=== PATIENT | female | born 1970 | race Caucasian/White ===

== ENCOUNTER 2022-02-16 08:25 | Day surgery (SDC) | payer BC ==
[2022-01-25 11:56] VITALS: BMI 21.2
[2022-02-16 08:51] VITALS: RESP 16; TEMP 96.8
[2022-02-16] MEDS: LACTATED RINGERS 1,000 ML IV SCH ×2 (09:00→09:32)
[2022-02-16] MEDS ORDERED: PROPOFOL 10 MG/ML 20 ML VIAL IV ONE (09:33)
--- NOTE | 2022-02-16 09:51 | P.PCN ---
Date of Procedure: 02/16/22 Procedure(s) Performed: BRIEF HISTORY: Patient is a 51-year-old pleasant white female scheduled for an elective colonoscopy as a part of screening for colorectal neoplasia. PROCEDURE PERFORMED: Colonoscopy. PREOPERATIVE DIAGNOSIS: Screening for colon cancer. IV sedation per Anesthesia. PROCEDURE: After informed consent was obtained, the patient, was brought into the endoscopy unit. IV sedation was administered by Anesthesia under continuous monitoring. Digital rectal examination was normal. Initially the Olympus CF-160 flexible video colonoscope was then inserted in the rectum, gradually advanced into the cecum without any difficulty. Careful examination was performed as the scope was gradually being withdrawn. Ileocecal valve and the appendiceal orifice were visualized and appeared normal. Prep was fair. There was some sticky still noted in the right colon. Irrigation was performed. Mucosa of the cecum, ascending colon, transverse colon, descending colon, sigmoid colon, and rectum appeared normal. Retroflexion was performed in the rectum and no lesions were seen. The patient tolerated the procedure well. IMPRESSION: Normal-appearing colon from rectum to cecum with no evidence of colorectal neoplasia . RECOMMENDATIONS: Findings of this examination were discussed with the patient as well as a family. She was advised to have a repeat screening colonoscopy in 10 years.
[2022-02-16 10:19] VITALS: BP 132/81; PULSE 56
== END 2022-02-16 10:47 | disposition home or self-care (01) ==
LOC: ORWHC2ENDO 08:25
PROVIDERS: ATTEND Internal Medicine Gastroenterology
DX: Z12.11 Encounter for screening for malignant neoplasm of colon (principal); I10 Essential (primary) hypertension; G43.909 Migraine, unspecified, not intractable, without status migrainosus; I47.1 Supraventricular tachycardia; Z88.5 Allergy status to narcotic agent; Z91.013 Allergy to seafood; Z88.1 Allergy status to other antibiotic agents; Z79.899 Other long term (current) drug therapy; Z80.42 Family history of malignant neoplasm of prostate
CPT/HCPCS: 45378; J2704

== ENCOUNTER 2024-12-20 14:38 | Observation (INO) | payer BC ==
[2024-12-20 15:48] LABS: Basophils # (A) 0.06 10*3/uL (0.00-0.10); Eosinophils # (A) 0.13 10*3/uL (0.04-0.35); Eosinophils % (A) 2.1 %; HCT 37.6 % (37.2-46.3); Lymphocytes # (A) 1.52 10*3/uL (0.90-5.00); Lymphocytes % (A) 24.1 %; MCH 33.5 pg (27.0-32.0); MCHC 34.6 g/dL (32.0-37.0); MCV 96.9 fL (80.0-97.0); Mean Platelet Volume 9.9 fL (9.5-12.2); Monocytes # (A) 0.57 10*3/uL (0.20-1.00); Neutrophils # (A) 4.01 10*3/uL (1.80-7.70); Neutrophils % (A) 63.6 %; Platelet Count 241 10*3/uL (140-440); RBC 3.88 10*6/uL (4.10-5.20); RDW 12.3 % (11.5-14.5)
[2024-12-20] MEDS: ASPIRIN 81 MG PO STA (15:56)
[2024-12-20 15:59] LABS: African American GFR (CKD) >90 (>60 ml/min/1.73 sqM); Anion Gap 11 mmol/L; Blood Urea Nitrogen 10 mg/dL (7-17); Calcium 10.2 mg/dL (8.4-10.2); Carbon Dioxide 25 mmol/L (22-30); Chloride 101 mmol/L (98-107); Glucose 90 mg/dL (74-99); Magnesium 2.3 mg/dL (1.6-2.3); Non-African American GFR(CKD) >90 (>60 ml/min/1.73 sqM); Potassium 4.3 mmol/L (3.5-5.1); Sodium 137 mmol/L (137-145); Total Protein 7.4 g/dL (6.3-8.2)
[2024-12-20 16:00] LABS: ALT 25 U/L (4-34); AST 39 U/L (14-36); Albumin 4.7 g/dL (3.5-5.0); Alkaline Phosphatase 56 U/L (38-126); Total Bilirubin 0.5 mg/dL (0.2-1.3)
--- NOTE | 2024-12-20 16:07 | ED ---
General Adult HPI - General Chief complaint: Dizziness Stated complaint: light headed, chest pain Time Seen by Provider: 12/20/24 14:53 Source: patient, RN notes reviewed Mode of arrival: ambulatory Limitations: no limitations - History of Present Illness Initial comments: 54-year-old female presents to the emergency department for evaluation of lightheadedness and chest pressure. Patient states that this started around 11 AM today. She does note at this time that it has improved. She notes having an episode of lightheadedness and chest pain yesterday as well. Patient endorses some mild shortness of breath associated with these episodes. She does report history of SVT and has had an ablation for this in the past. Denies any recent illness, fever, chills, headache, palpitations. - Related Data Home Medications Medication Instructions Recorded Confirmed Multivit with Calcium,Iron,Min 1 tab PO DAILY 01/25/22 12/20/24 [Women's Multivitamin] Propranolol [Inderal] 20 mg PO DAILY 01/25/22 12/20/24 valACYclovir HCL [Valtrex] 500 mg PO DAILY 01/25/22 12/20/24 Ascorbic Acid [Vitamin C] 1,000 mg PO DAILY 12/20/24 12/20/24 Biotin 2,500 mcg PO DAILY 12/20/24 12/20/24 Bonafide Womens Supplement 1 tab PO DAILY 12/20/24 12/20/24 Calcium Carbonate [Calcium] 600 mg PO BID 12/20/24 12/20/24 Iron 6mg 1 tab PO Q48H 12/20/24 12/20/24 Magnesium Oxide [Mag-Ox] 400 mg PO DAILY 12/20/24 12/20/24 Mecobalamin [Methyl B-12] 1,000 mcg PO DAILY 12/20/24 12/20/24 Naproxen [Naprosyn] 500 mg PO DAILY PRN 12/20/24 12/20/24 SUMAtriptan succinate [Imitrex] 100 mg PO DAILY PRN 12/20/24 12/20/24 Ubidecarenone [Coenzyme Q10] 200 mg PO DAILY 12/20/24 12/20/24 Allergies Allergy/AdvReac Type Severity Reaction Status Date / Time cephalexin [From Keflex] Allergy Rash/Hives Verified 12/20/24 17:56 codeine Allergy Anaphylaxis Verified 12/20/24 17:56 shellfish derived Allergy Rash/Hives Verified 12/20/24 17:56 Review of Systems ROS Statement: Those systems with pertinent positive or pertinent negative responses have been documented in the HPI. ROS Other: All systems not noted in ROS Statement are negative. Past Medical History Past Medical History: Hypertension, Supraventricular Tachycardia (SVT) Additional Past Medical History / Comment(s): migraines,osteoporosis,states "post menopausal prior to uterine ablation" History of Any Multi-Drug Resistant Organisms: None Reported Past Surgical History: Cardiac Ablation, Orthopedic Surgery, Uterine Ablation Additional Past Surgical History / Comment(s): arthroscopy lt knee,laparoscopy ovaries and uterus cysts removal Past Anesthesia/Blood Transfusion Reactions: No Reported Reaction Smoking Status: Never smoker - Past Family History Mother Family Medical History: No Reported History Father Family Medical History: Cancer Additional Family Medical History / Comment(s): prostate CA General Exam Limitations: no limitations General appearance: alert, in no apparent distress Head exam: Present: atraumatic, normocephalic, normal inspection Eye exam: Present: normal appearance, PERRL, EOMI. Absent: scleral icterus, conjunctival injection, periorbital swelling ENT exam: Present: normal exam, mucous membranes moist Neck exam: Present: normal inspection. Absent: tenderness, meningismus, lymphadenopathy Respiratory exam: Present: normal lung sounds bilaterally. Absent: respiratory distress, wheezes, rales, rhonchi, stridor Cardiovascular Exam: Present: regular rate, normal rhythm, normal heart sounds. Absent: systolic murmur, diastolic murmur, rubs, gallop, clicks GI/Abdominal exam: Present: soft. Absent: distended, tenderness, guarding, rebound, rigid Extremities exam: Present: normal inspection, full ROM, normal capillary refill. Absent: tenderness, pedal edema, joint swelling, calf tenderness Back exam: Present: normal inspection Neurological exam: Present: alert, oriented X3 Psychiatric exam: Present: normal affect, normal mood Skin exam: Present: warm, dry, intact, normal color. Absent: rash Course Vital Signs 12/20/24 12/20/24 12/20/24 14:40 15:19 17:41 Pulse Rate 72 66 67 Respiratory 18 14 16 Rate Blood Pressure 182/106 167/85 149/89 O2 Sat by Pulse 98 97 99 Oximetry Medical Decision Making - Medical Decision Making Was pt. sent in by a medical professional or institution ([facility], [employer], urgent care, hospital, or usp...) When possible be specific @ -No Did you speak to anyone other than the patient for history (EMS, parent, family, police, friend...)? What history was obtained from this source @ -No Did you review nursing and triage notes (agree or disagree)? Why? @ -I reviewed and agree with nursing and triage notes Were old charts reviewed (outside hosp., previous admission, EMS record, old EKG, old radiological studies, urgent care reports/EKG's, usp records)? Report findings @ -No old charts were reviewed Differential Diagnosis (chest pain, altered mental status, abdominal pain women, abdominal pain men, vaginal bleeding, weakness, fever, dyspnea, syncope, headache, dizziness, GI bleed, back pain, seizure, CVA, palpatations, mental health, musculoskeletal)? @ -Differential Chest Pain: Stable Angina, Unstable Angina, STEMI, NSTEMI Aortic Dissection, Pneumothorax, Musculoskeletal, Esophageal Spasm GERD, Cholecystitis, Pancreatitis, Zoster, this is not meant to be an all-inclusive list. EKG interpreted by me (3pts min.). @ -[id number] shows sinus rhythm rate 67, VT 154, QRS 86, QTQTc 376/392 X-rays interpreted by me (1pt min.). @ -Chest x-ray reveals no acute process CT interpreted by me (1pt min.). @ -None done U/S interpreted by me (1pt. min.). @ -None done What testing was considered but not performed or refused? (CT, X-rays, U/S, labs)? Why? @ -None What meds were considered but not given or refused? Why? @ -None Did you discuss the management of the patient with other professionals (professionals i.e. [facility], [employer], lab, RT, psych nurse, social welfare research worker, meal attendant, teacher, founder and chief technical officer, continuous pillowcase cutter)? Give summary @ -Management discussed with [facility] who was accepting of the admission Was smoking cessation discussed for >3mins.? @ -No Was critical care preformed (if so, how long)? @ -No Were there social determinants of health that impacted care today? How? (Homelessness, low income, unemployed, alcoholism, drug addiction, transportation, low edu. Level, literacy, decrease access to med. care, skilled nursing, rehab)? @ -No Was there de-escalation of care discussed even if they declined (Discuss DNR or withdrawal of care, Hospice)? DNR status @ -No What co-morbidities impacted this encounter? (DM, HTN, Smoking, COPD, CAD, Ca ncer, CVA, ARF, Chemo, Hep., AIDS, mental health diagnosis, sleep apnea, morbid obesity)? @ -None Was patient admitted / discharged? Hospital course, mention meds given and route, prescriptions, significant lab abnormalities, going to OR and other pertinent info. @ -Admitted. Patient presented emergency department for evaluation of chest pain. Laboratory studies obtained revealing no significant leukocytosis, hemoglobin stable; negative D-dimer, negative troponin. CMP is nonactionable. Chest x-ray reveals no acute process. Patient will be admitted for observation for chest pain and cardiology consultation. She is understanding agreeable with plan. Case discussed with Dr. Nicholas who is accepting of the admission. Case discussed with Dr. Frost Undiagnosed new problem with uncertain prognosis? @ -No Drug Therapy requiring intensive monitoring for toxicity (Heparin, Nitro, Ins ulin, Cardizem)? @ -No Were any procedures done? @ -No Diagnosis/symptom? @ -Chest pain Acute, or Chronic, or Acute on Chronic? @ -Acute Uncomplicated (without systemic symptoms) or Complicated (systemic symptoms)? @ -Default complicated Side effects of treatment? @ -No Exacerbation, Progression, or Severe Exacerbation? @ -No Poses a threat to life or bodily function? How? (Chest pain, [place], [place], pneumonia, PE, COPD, DKA, ARF, appy, cholecystitis, CVA, Diverticulitis, Homicidal, Suicidal, threat to staff... and all critical care pts) @ -No - Lab Data Result diagrams: 12/21/24 06:00 12/21/24 06:00 Lab Results 12/20/24 12/20/24 12/20/24 Range/Units 15:38 15:38 15:38 WBC 6.30 (4.50-10.00) 10*3/uL RBC 3.88 L (4.10-5.20) 10*6/uL Hgb 13.0 (12.0-15.0) g/dL Hct 37.6 (37.2-46.3) % MCV 96.9 (80.0-97.0) fL MCH 33.5 H (27.0-32.0) pg MCHC 34.6 (32.0-37.0) g/dL Plt Count 241 (140-440) 10*3/uL MPV 9.9 (9.5-12.2) fL Immature Gran % (Auto) 0.2 % Neutrophils % 63.6 % Lymphocytes % 24.1 % Monocytes % 9.0 % Eosinophils % 2.1 % Basophils % 1.0 % Immature Gran # 0.01 (0.00-0.04) 10*3/uL Neutrophils # 4.01 (1.80-7.70) 10*3/uL Lymphocytes # 1.52 (0.90-5.00) 10*3/uL Monocytes # 0.57 (0.20-1.00) 10*3/uL Eosinophils # 0.13 (0.04-0.35) 10*3/uL Basophils # 0.06 (0.00-0.10) 10*3/uL PT 10.3 (10.0-12.5) sec INR 0.9 (<1.2) APTT 23.3 (22.0-30.0) sec D-Dimer <0.17 (<0.60) mg/L FEU Sodium 137 (137-145) mmol/L Potassium 4.3 (3.5-5.1) mmol/L Chloride 101 (98-107) mmol/L Carbon Dioxide 25 (22-30) mmol/L Anion Gap 11 mmol/L BUN 10 (7-17) mg/dL Creatinine 0.51 L (0.52-1.04) mg/dL Est GFR (CKD-EPI)AfAm >90 (>60 ml/min/1.73 sqM) Est GFR (CKD-EPI)NonAf >90 (>60 ml/min/1.73 sqM) Glucose 90 (74-99) mg/dL Calcium 10.2 (8.4-10.2) mg/dL Magnesium 2.3 (1.6-2.3) mg/dL Total Bilirubin 0.5 (0.2-1.3) mg/dL AST 39 H (14-36) U/L ALT 25 (4-34) U/L Alkaline Phosphatase 56 (38-126) U/L Troponin I (0.000-0.034) ng/mL Total Protein 7.4 (6.3-8.2) g/dL Albumin 4.7 (3.5-5.0) g/dL 12/20/24 Range/Units 15:38 WBC (4.50-10.00) 10*3/uL RBC (4.10-5.20) 10*6/uL Hgb (12.0-15.0) g/dL Hct (37.2-46.3) % MCV (80.0-97.0) fL MCH (27.0-32.0) pg MCHC (32.0-37.0) g/dL Plt Count (140-440) 10*3/uL MPV (9.5-12.2) fL Immature Gran % (Auto) % Neutrophils % % Lymphocytes % % Monocytes % % Eosinophils % % Basophils % % Immature Gran # (0.00-0.04) 10*3/uL Neutrophils # (1.80-7.70) 10*3/uL Lymphocytes # (0.90-5.00) 10*3/uL Monocytes # (0.20-1.00) 10*3/uL Eosinophils # (0.04-0.35) 10*3/uL Basophils # (0.00-0.10) 10*3/uL PT (10.0-12.5) sec INR (<1.2) APTT (22.0-30.0) sec D-Dimer (<0.60) mg/L FEU Sodium (137-145) mmol/L Potassium (3.5-5.1) mmol/L Chloride (98-107) mmol/L Carbon Dioxide (22-30) mmol/L Anion Gap mmol/L BUN (7-17) mg/dL Creatinine (0.52-1.04) mg/dL Est GFR (CKD-EPI)AfAm (>60 ml/min/1.73 sqM) Est GFR (CKD-EPI)NonAf (>60 ml/min/1.73 sqM) Glucose (74-99) mg/dL Calcium (8.4-10.2) mg/dL Magnesium (1.6-2.3) mg/dL Total Bilirubin (0.2-1.3) mg/dL AST (14-36) U/L ALT (4-34) U/L Alkaline Phosphatase (38-126) U/L Troponin I <0.012 (0.000-0.034) ng/mL Total Protein (6.3-8.2) g/dL Albumin (3.5-5.0) g/dL Disposition Clinical Impression: Chest pain, Lightheadedness Disposition: ADMITTED IP TO THIS [facility] Condition: Stable Is patient prescribed a controlled substance at d/c from ED?: No
[2024-12-20 16:08] LABS: INR 0.9 (<1.2); Partial Thromboplastin Time 23.3 sec (22.0-30.0); Prothrombin Time 10.3 sec (10.0-12.5)
[2024-12-20] MEDS: SODIUM CHLORIDE 0.9% 1,000 ML IV ONE (16:23)
--- NOTE | 2024-12-20 16:25 | XR ---
EXAMINATION TYPE: XR chest 2V DATE OF EXAM: 12/20/2024 3:45 PM CLINICAL INDICATION:Female, 54 years old with history of pain; [facility] COMPARISON: None TECHNIQUE: XR chest 2V Frontal view of the chest. FINDINGS: Lungs/Pleura: There is no evidence of pleural effusion, focal consolidation, or pneumothorax. Pulmonary vascularity: Unremarkable. Heart/mediastinum: Cardiomediastinal silhouette is unremarkable. Musculoskeletal: No acute osseous pathology. IMPRESSION: No acute cardiopulmonary disease/process. [facility], , 12/20/2024 4:23 PM
[2024-12-20] MEDS ORDERED: NALOXONE 0.4 MG/ML 1 ML VIAL IV PRN (17:32)
[2024-12-20] MEDS ORDERED: ONDANSETRON 4 MG/2 ML VIAL IVP PRN (17:32)
[2024-12-20] MEDS ORDERED: ACETAMINOPHEN TAB 325 MG TAB PO PRN (17:32)
[2024-12-20] MEDS ORDERED: MORPHINE SULFATE 4 MG/ML SYRINGE IV PRN (17:32)
[2024-12-20] MEDS ORDERED: SUMAtriptan succinate 50 MG TAB PO PRN (20:27)
[2024-12-20] MEDS: MELATONIN 5 MG TABLET PO PRN (22:10)
[2024-12-20] MEDS: SODIUM CHLORIDE 0.9% 1,000 ML IV SCH (22:12)
--- NOTE | 2024-12-20 23:38 | P.HPIM ---
History of Present Illness H&P Date: 12/20/24 54 year old female with hypertension , SVT s/p ablation patient coming in due to couple episodes of left sided chest pain over the past 5 days usually associated with activity . and over the past 2 days , she was experiencing episodes of dizziness and chest tightness without palpitations profuse sweating nausea or vomiting. she never had a heart attack, she had a negative stress test years ago and recent negative Calcium CT score. she saw her compliance representative dealer in July of this year and was given a clean bill of health patient went into menopause around age 41 that is 13 years ago , and now suffers from severe osteoporosis , she was never placed on hormone replacement therapy . she recently traveled from [place] to [place] by car, denies any history of blood clots. she denies smoking or illicit drugs she currently denies any ongoing chest pain , but she was planning a trip in 2 d ays and was growing worried about these frequent episodes . she denies any fever, cough, runny nose, or recent upper respiratory viral illness. review of systems Pertinent positives as noted in HPI. All other systems were reviewed and are negative on exam Constitutional: No acute distress, conversant, pleasant Eyes: Anicteric sclerae, moist conjunctiva, Pupils equal round reactive to light ENMT: NC/AT Oropharynx clear, no erythema, or exudates Neck: Supple, no masses, or JVD No carotid bruits No thyromegaly Lungs: Clear to auscultation Clear to percussion Normal respiratory effort, no accessory muscle use Cardiovascular: Heart regular in rate and rhythm, No murmurs, gallops, or rubs No peripheral edema Abdominal: Soft Nontender, no guarding, rebound or rigidity Abdomen moving with respiration Normoactive bowel sounds Extremities: No digital cyanosis No clubbing Pedal pulses intact and symmetrical Radial pulses intact and symmetrical No calf tenderness Psychiatric: Alert and oriented to person, place and time Appropriate affect fair judgement Neuro Muscles Strength 5/5 in all 4 extremities Sensation to light touch grossly present throughout Cranial nerves II-XII grossly intact Past Medical History Past Medical History: Hypertension, Supraventricular Tachycardia (SVT) Additional Past Medical History / Comment(s): migraines,osteoporosis,states "post menopausal prior to uterine ablation" History of Any Multi-Drug Resistant Organisms: None Reported Past Surgical History: Cardiac Ablation, Orthopedic Surgery, Uterine Ablation Additional Past Surgical History / Comment(s): arthroscopy lt knee,laparoscopy ovaries and uterus cysts removal Past Anesthesia/Blood Transfusion Reactions: No Reported Reaction Smoking Status: Never smoker - Past Family History Mother Family Medical History: No Reported History Father Family Medical History: Cancer Additional Family Medical History / Comment(s): prostate CA Medications and Allergies Home Medications Medication Instructions Recorded Confirmed Type Multivit with Calcium,Iron,Min 1 tab PO DAILY 01/25/22 12/20/24 History [Women's Multivitamin] Propranolol [Inderal] 20 mg PO DAILY 01/25/22 12/20/24 History valACYclovir HCL [Valtrex] 500 mg PO DAILY 01/25/22 12/20/24 History Ascorbic Acid [Vitamin C] 1,000 mg PO DAILY 12/20/24 12/20/24 History Biotin 2,500 mcg PO DAILY 12/20/24 12/20/24 History Bonafide Womens Supplement 1 tab PO DAILY 12/20/24 12/20/24 History Calcium Carbonate [Calcium] 600 mg PO BID 12/20/24 12/20/24 History Iron 6mg 1 tab PO Q48H 12/20/24 12/20/24 History Magnesium Oxide [Mag-Ox] 400 mg PO DAILY 12/20/24 12/20/24 History Mecobalamin [Methyl B-12] 1,000 mcg PO DAILY 12/20/24 12/20/24 History Naproxen [Naprosyn] 500 mg PO DAILY PRN 12/20/24 12/20/24 History SUMAtriptan succinate [Imitrex] 100 mg PO DAILY PRN 12/20/24 12/20/24 History Ubidecarenone [Coenzyme Q10] 200 mg PO DAILY 12/20/24 12/20/24 History Allergies Allergy/AdvReac Type Severity Reaction Status Date / Time cephalexin [From Keflex] Allergy Rash/Hives Verified 12/20/24 17:56 codeine Allergy Anaphylaxis Verified 12/20/24 17:56 shellfish derived Allergy Rash/Hives Verified 12/20/24 17:56 Physical Exam Vitals: Vital Signs Temp Pulse Pulse Resp BP BP Pulse Ox 12/20/24 19:39 97.7 F 63 16 156/89 100 12/20/24 17:41 67 16 149/89 99 12/20/24 15:19 66 14 167/85 97 12/20/24 14:40 72 18 182/106 98 Intake and Output 12/20/24 12/20/24 12/20/24 06:59 14:59 22:59 Other: Weight 70.125 kg Results CBC & Chem 7: 12/20/24 15:38 12/20/24 15:38 Labs: Abnormal Lab Results - Last 24 Hours (Table) 12/20/24 12/20/24 Range/Units 15:38 15:38 RBC 3.88 L (4.10-5.20) 10*6/uL MCH 33.5 H (27.0-32.0) pg Creatinine 0.51 L (0.52-1.04) mg/dL AST 39 H (14-36) U/L Assessment and Plan Assessment: 54 year old female with hypertension and SVT post ablation, coming in for recurrent episodes of chest pain and tightness, I discussed the case with ED doc and I accepted the admission for ACS rule out with anticpated length of stay < 2 midnights atypical chest pain , rule out ACS threat monitoring analyst trops negative X 2 EKG NSR, no acute ST changes aspirin full dose given in ED, continue with 81 mg po daily check lipid panel , apo B, A1c, Tsh cardiology consult monitor vital signs supplemental oxygen as needed CXR no acute cardiopulmonary process chronic conditions Hypertension and SVT continue propranolol full code DVT PPX sc lovenox 40 mg daily rest of the blood work unremarkable Na 137, K 4.3 , BUN 10 , Cr 0.5, WBC 6 Hgb 13
[2024-12-21 07:53] VITALS: BP 152/84; PULSE 67; RESP 15; TEMP 98
[2024-12-21 07:56] LABS: Basophils # (A) 0.06 X 10*3/uL (0.00-0.10); Basophils % (A) 1.1 %; Eosinophils # (A) 0.17 X 10*3/uL (0.04-0.35); Eosinophils % (A) 3.1 %; HCT 36.8 % (37.2-46.3); Lymphocytes # (A) 2.02 X 10*3/uL (0.90-5.00); Lymphocytes % (A) 36.5 %; MCH 32.6 pg (27.0-32.0); MCHC 32.6 g/dL (32.0-37.0); Mean Platelet Volume 10.9 FL (9.5-12.2); Monocytes % (A) 10.8 %; NRBC Per 100 WBC 0 X 10*3/uL (0.00-0.01); Neutrophils # (A) 2.68 X 10*3/uL (1.80-7.70); Neutrophils % (A) 48.3 %; Platelet Count 242 X 10*3/uL (140-440); RBC 3.68 X 10*6/uL (4.10-5.20); RDW 12.8 % (11.5-14.5); WBC 5.54 X 10*3/uL (4.50-10.00)
[2024-12-21 08:25] LABS: Calcium 9.1 mg/dL (8.7-10.3); Carbon Dioxide 23.3 mmol/L (21.6-31.8); Chloride 104 mmol/L (96-109); Chol/HDL Ratio 2.11 Ratio; Glucose 91 mg/dL (70-110); LDL Cholesterol,Calculated 74.7 mg/dL (0.0-131.0); Sodium 141 mmol/L (135-145); VLDL Calculation 16.44 mg/dL (5.00-40.00)
[2024-12-21] MEDS: valACYclovir HCL 500 MG TAB PO SCH (08:47)
[2024-12-21] MEDS: ENOXAPARIN 40 MG/0.4 ML SYRINGE SQ SCH (08:47)
[2024-12-21] MEDS: ASPIRIN 81 MG PO SCH (08:47)
--- NOTE | 2024-12-21 09:19 | P.CRDCN ---
History of Present Illness Consult date: 12/21/24 Consult reason: chest pain History of present illness: This is a 54-year-old female with past medical history of migraine headaches on propranolol, history of SVT status post ablation in 2017 that did not completely resolve symptoms. Patient was seen by search engine marketing strategist in [place] in July of this year. At that time she underwent an EKG, calcium score which patient reports is 0 and echocardiogram. She states that all her testing was normal. 1 week ago she was golfing and bent over and sneezed at the same time felt a sharp pain in the left lateral chest wall that was stabbing and went away. On Saturday morning she had 6-8 episodes of a stabbing sharp pain on the left lateral chest. On Saturday she started feeling lightheaded. She states she has been trying to cut her calories to lose weight but it was not extreme. She then had occasional dull pain in the left lateral area. On Saturday she developed tightness in the mid chest area along with lightheadedness. She states when she sits she feels better. On Saturday she was packing for vacation it is coming up and still had lightheadedness and a little tightness in the mid chest area with activity. She states she is usually quite active and gets 10,000 steps per day. She denies any palpitations, no lower extremity edema, no syncopal episodes. She denies history of asthma or COPD. She denies cough or sputum production. No blood in her urine. No blood in her stool. No history of CVA or seizure. Patient presented with blood pressure 182/106. Blood pressure 144/87, heart rate 90, pulse ox 95% on room air. -EKG: Sinus rhythm with T wave inversions no previous EKG to compare. -Chest x-ray: No acute process. -Laboratory studies: Troponin negative x 3. Creatinine 0.51, potassium 4.3, magnesium 2.3. CBC unremarkable. -Home cardiac medications: Magnesium 400 mg daily, propranolol 20 mg daily. Review Of Systems: At the time of my exam: CONSTITUTIONAL: Denies fever or chills. HEENT: Denies blurred vision, vision changes, or eye pain. Denies hemoptysis CARDIOVASCULAR: Denies chest pain. Denies orthopnea. Denies PND. Denies palpitations RESPIRATORY: Denies shortness of breath. GASTROINTESTINAL: Denies abdominal pain. Denies nausea or vomiting. HEMATOLOGIC: Denies bleeding disorders. GENITOURINARY: Denies any blood in urine. SKIN: Denies puritis. Denies rash. Physical examination: Gen: This is a 54-year-old female in no acute distress VS: reviewed HEENT: Head is atraumatic, normocephalic. Pupils equal, round. Sclerae is anicteric. NECK: Supple. No JVD. LUNGS: Clear to auscultation. No wheezes or rhonchi. No intercostal retractions. HEART: Regular rate and rhythm. No murmur. ABDOMEN: Soft No tenderness. EXTREMITIES: No pedal edema. No calf tenderness. NEUROLOGICAL: Patient is awake, alert and oriented x3. Assessment: Atypical chest pain, acute coronary syndrome ruled out History of SVT status post ablation in 2017 Migraine headaches Plan: Continue propranolol Schedule patient for stress echocardiogram today Obtain 2-D echocardiogram and Doppler study to assess cardiac structure and function If stress testing is unremarkable, patient is cleared for discharge. Thank you kindly for this consultation. Nurse practitioner note has been reviewed, I agree with documented findings and plan of care. Patient was seen and examined. Past Medical History Past Medical History: Hypertension, Supraventricular Tachycardia (SVT) Additional Past Medical History / Comment(s): migraines,osteoporosis,states "post menopausal prior to uterine ablation" History of Any Multi-Drug Resistant Organisms: None Reported Past Surgical History: Cardiac Ablation, Orthopedic Surgery, Uterine Ablation Additional Past Surgical History / Comment(s): arthroscopy lt knee,laparoscopy ovaries and uterus cysts removal Past Anesthesia/Blood Transfusion Reactions: No Reported Reaction Smoking Status: Never smoker - Past Family History Mother Family Medical History: No Reported History Father Family Medical History: Cancer Additional Family Medical History / Comment(s): prostate CA Medications and Allergies Home Medications Medication Instructions Recorded Confirmed Type Multivit with Calcium,Iron,Min 1 tab PO DAILY 01/25/22 12/20/24 History [Women's Multivitamin] Propranolol [Inderal] 20 mg PO DAILY 01/25/22 12/20/24 History valACYclovir HCL [Valtrex] 500 mg PO DAILY 01/25/22 12/20/24 History Ascorbic Acid [Vitamin C] 1,000 mg PO DAILY 12/20/24 12/20/24 History Biotin 2,500 mcg PO DAILY 12/20/24 12/20/24 History Bonafide Womens Supplement 1 tab PO DAILY 12/20/24 12/20/24 History Calcium Carbonate [Calcium] 600 mg PO BID 12/20/24 12/20/24 History Iron 6mg 1 tab PO Q48H 12/20/24 12/20/24 History Magnesium Oxide [Mag-Ox] 400 mg PO DAILY 12/20/24 12/20/24 History Mecobalamin [Methyl B-12] 1,000 mcg PO DAILY 12/20/24 12/20/24 History Naproxen [Naprosyn] 500 mg PO DAILY PRN 12/20/24 12/20/24 History SUMAtriptan succinate [Imitrex] 100 mg PO DAILY PRN 12/20/24 12/20/24 History Ubidecarenone [Coenzyme Q10] 200 mg PO DAILY 12/20/24 12/20/24 History Allergies Allergy/AdvReac Type Severity Reaction Status Date / Time cephalexin [From Keflex] Allergy Rash/Hives Verified 12/20/24 17:56 codeine Allergy Anaphylaxis Verified 12/20/24 17:56 shellfish derived Allergy Rash/Hives Verified 12/20/24 17:56 Physical Exam Vitals: Vital Signs Temp Pulse Pulse Resp BP BP Pulse Ox 12/21/24 00:26 97.9 F 90 17 144/87 95 12/20/24 20:26 16 12/20/24 20:00 16 12/20/24 19:39 97.7 F 63 16 156/89 100 12/20/24 17:41 67 16 149/89 99 12/20/24 15:19 66 14 167/85 97 12/20/24 14:40 72 18 182/106 98 Intake and Output 12/20/24 12/21/24 12/21/24 22:59 06:59 14:59 Other: Voiding Method Toilet # Voids 1 3 Weight 70.125 kg Results 12/21/24 06:00 12/21/24 06:00 Cardiac Enzymes 12/20/24 12/20/24 12/20/24 Range/Units 15:38 15:38 19:16 AST 39 H (14-36) U/L Troponin I <0.012 <0.012 (0.000-0.034) ng/mL 12/20/24 Range/Units 21:41 AST (14-36) U/L Troponin I <0.012 (0.000-0.034) ng/mL Coagulation 12/20/24 Range/Units 15:38 PT 10.3 (10.0-12.5) sec APTT 23.3 (22.0-30.0) sec CBC 12/20/24 Range/Units 15:38 WBC 6.30 (4.50-10.00) 10*3/uL RBC 3.88 L (4.10-5.20) 10*6/uL Hgb 13.0 (12.0-15.0) g/dL Hct 37.6 (37.2-46.3) % Plt Count 241 (140-440) 10*3/uL Comprehensive Metabolic Panel 12/20/24 Range/Units 15:38 Sodium 137 (137-145) mmol/L Potassium 4.3 (3.5-5.1) mmol/L Chloride 101 (98-107) mmol/L Carbon Dioxide 25 (22-30) mmol/L BUN 10 (7-17) mg/dL Creatinine 0.51 L (0.52-1.04) mg/dL Glucose 90 (74-99) mg/dL Calcium 10.2 (8.4-10.2) mg/dL AST 39 H (14-36) U/L ALT 25 (4-34) U/L Alkaline Phosphatase 56 (38-126) U/L Total Protein 7.4 (6.3-8.2) g/dL Albumin 4.7 (3.5-5.0) g/dL Current Medications Generic Name Dose Route Start Last Admin Trade Name Freq PRN Reason Stop Dose Admin Acetaminophen 650 mg 12/20/24 17:32 Acetaminophen Tab 325 Mg Tab PO Q6HR PRN Mild Pain or Fever > 100.5 Aspirin 81 mg 12/21/24 09:00 Aspirin 81 Mg PO DAILY [facility] Enoxaparin Sodium 40 mg 12/21/24 09:00 Enoxaparin 40 Mg/0.4 Ml Syringe SQ DAILY [facility] Sodium Chloride 1,000 mls @ 75 mls/hr 12/20/24 17:45 12/20/24 22:12 Saline 0.9% IV 75 mls/hr .[id number] LAURA Administration Melatonin 5 mg 12/20/24 20:30 12/20/24 22:10 Melatonin 5 Mg Tablet PO 5 mg HS PRN Administration Insomnia Morphine Sulfate 4 mg 12/20/24 17:32 Morphine Sulfate 4 Mg/Ml Syringe IV Q4HR PRN Severe Pain (Scale 7 to 10) Naloxone HCl 0.2 mg 12/20/24 17:32 Naloxone 0.4 Mg/Ml 1 Ml Vial IV Q2M PRN Opioid Reversal Ondansetron HCl 4 mg 12/20/24 17:32 Ondansetron 4 Mg/2 Ml Vial IVP Q8HR PRN Nausea And Vomiting Propranolol HCl 20 mg 12/21/24 09:00 Propranolol 20 Mg Tab PO DAILY [facility] Sumatriptan Succinate 100 mg 12/20/24 20:27 Sumatriptan Succinate 50 Mg Tab PO DAILY PRN Migraine Headache Valacyclovir HCl 500 mg 12/21/24 09:00 Valacyclovir Hcl 500 Mg Tab PO DAILY [facility] Protocol Intake and Output 12/20/24 12/21/24 12/21/24 22:59 06:59 14:59 Other: Voiding Method Toilet # Voids 1 3 Weight 70.125 kg 12/20/24 15:38 12/20/24 15:38
--- NOTE | 2024-12-21 11:54 | CA ---
Transthoracic Echo Report Name: Mireya Carroll Age: 54 Gender: F : 1970 Exam Date: 12/21/2024 10:36 Exam Location: [facility] Ht (in): 68 Wt (lb): 154 Ordering Physician: Teresa Willson Attending/Referring Phys: [id number], Demetris Endo Tech Diane Bain RDCS Procedure CPT: Indications: LVF, chest pain, dizziness Cardiac Hx: Technical Quality: Good Contrast 1: Total Dose (mL): Contrast 2: Total Dose (mL): MEASUREMENTS (Male / Female) Normal Values 2D ECHO LV Diastolic Diameter PLAX 4.3 cm 4.2 - 5.9 / 3.9 - 5.3 cm LV Systolic Diameter PLAX 2.8 cm IVS Diastolic Thickness 0.9 cm 0.6 - 1.0 / 0.6 - 0.9 cm LVPW Diastolic Thickness 0.8 cm 0.6 - 1.0 / 0.6 - 0.9 cm LV Relative Wall Thickness 0.4 LVOT Diameter 1.7 cm LV Diastolic Volume MOD BP 106.8 cm??? 67 - 155 / 56 - 104 cm??? LV Systolic Volume MOD BP 38.0 cm??? 22 - 58 / 19 - 49 cm??? LV Ejection Fraction MOD BP 64.4 % >= 55 % LV Cardiac Index MOD BP 2811.5 cm???/min???m??? LV Diastolic Volume MOD 4C 105.6 cm??? LV Systolic Volume MOD 4C 34.0 cm??? LV Ejection Fraction MOD 4C 67.8 % LV Cardiac Index MOD 4C 2929.4 cm???/min???m??? LV Diastolic Length 4C 8.6 cm LV Systolic Length 4C 6.9 cm LV Diastolic Volume MOD 2C 101.6 cm??? LV Systolic Volume MOD 2C 42.2 cm??? LV Ejection Fraction MOD 2C 58.4 % LV Cardiac Index MOD 2C 2424.9 cm???/min???m??? LV Diastolic Length 2C 8.1 cm LV Systolic Length 2C 6.8 cm LA Volume 43.3 cm??? 18 - 58 / 22 - 52 cm??? LA Volume Index 23.6 cm???/m??? 16 - 28 cm???/m??? DOPPLER AV Peak Velocity 147.0 cm/s AV Peak Gradient 8.6 mmHg AV Mean Velocity 96.3 cm/s AV Mean Gradient 4.2 mmHg AV Velocity Time Integral 28.9 cm LVOT Peak Velocity 130.5 cm/s LVOT Peak Gradient 6.8 mmHg LVOT Velocity Time Integral 22.9 cm LVOT Stroke Volume 50.5 cm??? LVOT Stroke Volume Index 27.6 ml/m??? LVOT Cardiac Index 2064.3 cm???/min???m??? AV Area Cont Eq vti 1.7 cm??? AV Area Cont Eq pk 2.0 cm??? MV Area PHT 3.5 cm??? Mitral E Point Velocity 84.5 cm/s Mitral A Point Velocity 81.8 cm/s Mitral E to A Ratio 1.0 MV Deceleration Time 215.4 ms TR Peak Velocity 195.7 cm/s TR Peak Gradient 15.3 mmHg Right Atrial Pressure 5.0 mmHg Pulmonary Artery Systolic Pressu 20.3 mmHg Right Ventricular Systolic Press 20.3 mmHg PV Peak Velocity 108.1 cm/s PV Peak Gradient 4.7 mmHg FINDINGS Left Ventricle Left ventricular ejection fraction is estimated at 55-60 %. Mildly increased left ventricular diastolic volume. Normal left ventricular systolic function with no obvious regional wall motion abnormalities. Right Ventricle Normal right ventricular size and function. Right ventricular systolic pressure within normal limits. Right Atrium Normal right atrial size. Left Atrium Normal left atrial size. Mitral Valve Mitral annular calcification. No evidence for mitral valve prolapse. No mitral stenosis. Trace mitral regurgitation. Aortic Valve Trileaflet aortic valve. No aortic stenosis. No aortic regurgitation. Tricuspid Valve Structurally normal tricuspid valve. No tricuspid stenosis. Trace tricuspid regurgitation. Pulmonic Valve Structurally normal pulmonic valve. No pulmonic stenosis. Trace pulmonic regurgitation. Pericardium No pericardial effusion. Aorta Normal size aortic root and proximal ascending aorta. CONCLUSIONS 1. Normal left ventricular size and systolic function 2. Trace mitral and tricuspid regurgitation. Previewed by: Dr. Jerrell Doty MD (Electronically Signed) Final Date: 21 December 2024 11:53
--- NOTE | 2024-12-21 12:06 | CA ---
Stress Echo Report Miryea Carroll Age: 54 Gender: F : 1970 Exam Date: 12/21/2024 10:25 Exam Location: [facility] Ht (in): 68 Wt (lb): 154 Ordering Physician: Teresa Willson Referring Physician: [id number] Lead Etl Developer: JUDIT Technologist Procedure CPT: Indication: Chest Pain ICD-9 Codes: Rhythm: Patient History: CHEST PAIN AND FAMILY HISTORY OF HEART DISEASE Cardiac Medications: SEE CHART,,,,, Medications in past 24 hours: Contrast: Stress Results Protocol: David Total dose(mL): Exercise Duration (min:sec): 4:[address] Depression (mm): Angina Score: Grubbs Score: METS: 5.8 Resting HR: 94 Resting BP: 126 / 72 Peak HR: 159 Peak BP: 193 / 87 Max Predicted HR: 165 96 % Max Predicted HR Target HR: 140 Double Product: [id number] Stress Summary: The patient's target heart rate was achieved BP Response: Normal Reason for Termination: MAX EXERTION/TARGET HR Cardiac Symptoms: NO SYMPTOMS ECG Analysis Resting ECG: Normal sinus rhythm, Resting ST/T wave changes Stress ECG: Exaggeration of the baseline ST abnormality Arrhythmia: None Echo Analysis Resting Echo: Normal resting echocardiogram. Peak Echo Analysis: Normal wall thickening and motion with decrease in the cavity size MEASUREMENTS (Male/Female) Normal Values CONCLUSIONS 1. Decreased exercise tolerance with nondiagnostic electrocardiographic stress testing 2. Normal stress echocardiogram with no evidence of stress induced ischemia. Dr. Jerrell Doty MD (Electronically Signed) Final Date: 21 December 2024 12:05
[2024-12-21] MEDS: PROPRANOLOL 20 MG TAB PO SCH (12:27)
--- NOTE | 2024-12-21 13:33 | P.DS ---
Providers Date of admission: 12/20/24 17:12 Expected date of discharge: 12/21/24 Attending physician: Kady Flores MD Consults: 12/20/24 17:32 Consult Physician Routine Consulting Provider: Abraham Chavez Consult Reason/Comments: chest pain Do you want consulting provider notified?: Yes, Notify in am Primary care physician: Physician Nonstaff Hospital Course: Discharge Diagnosis: Atypical chest pain, acute coronary event ruled out Hypertension History of SVT status post ablation Migraine headaches Hospital Course: Patient is a pleasant 54-year-old female with a past medical history of hypertension, SVT status post ablation, migraine headaches, and uterine ablation. She presented to the emergency department on 12/20/2024 with a chief complaint of left-sided chest pain. Patient reports she had her grandchildren and was preparing to get everything ready to go on vacation. She reports that she developed a little dizziness followed by left-sided chest pain so she came to the emergency department for evaluation. Upon arrival to our facility, patient underwent evaluation in the ER. Vital signs upon arrival show blood pressure 182/106, heart rate 72, respiratory rate 18, temp 97.7 F, and SpO2 of 98% on room air. EKG was completed showing normal sinus rhythm at 67 bpm with T wave inversion in inferior lead III. Chest x-ray was negative for acute cardiopulmonary process. Labs were completed and reviewed. CBC unremarkable. Coagulation profile normal findings. D-dimer was negative at less than 0.17. BMP unremarkable. Blood glucose 90. Calcium 10.2. Magnesium 2.3. Liver profile showing slightly elevated AST of 39 otherwise normal findings. Troponin was negative at less than 0.012. Patient mated under our services with consultation to cardiology. Troponins trended overnight all negative at less than 0.012 x 3 draws. Hemoglobin A1c resulting at 5%. Lipid profile unremarkable with HDL of 81.90. Echocardiogram was completed showing a p reserved EF of 55 to 60% with trace mitral and tricuspid regurgitation.Patient was evaluated by cardiology and taken for stress echo. Stress echocardiogram showing decreased exercise tolerance with nondiagnostic EKG stress testing but normal stress echocardiogram with no evidence of stress-induced ischemia. Discussed these findings in detail with cardiac GASOLINE TESTER stating patient cleared from cardiac perspective for discharge recommending outpatient follow-up in their office in 1 to 2 weeks. Patient currently free from any chest pain or discomfort. She is medically optimized for discharge. No medication changes made during this admission. Patient to follow-up outpatient with PCP credit investigator in 1 week. Physical exam: Patient seen and examined at bedside. Vital signs reviewed and stable. General: Nontoxic, no distress and appears stated age. Derm: Skin warm and dry, normal coloration for ethnicity. Head: Atraumatic, normocephalic and symmetric. Eyes: EOM's intact, no lid lag, and anicteric sclera Mouth: no lip lesions, mucus membranes moist Cardiovascular: regular rate and rhythm with normal S1S2, no murmur, positive posterior tibial pulses bilaterally, and cap refill < 2 seconds. Lungs: Respirations even, regular, and unlabored on room air. Lungs CTA bilaterally, no rhonchi, no rales, no wheezing, and no accessory muscle usage. Abdominal: soft, nontender to palpation, no guarding, no appreciable organomegaly Ext: ROM intact. No gross muscle atrophy, no edema, no contractures Neuro: Speech clear, face symmetrical and CN II-XII grossly intact with no noted focal neuro deficits Psych: Alert and oriented to person, place, time, and situation. Appropriate and pleasant affect. A total of 33 minutes of time were spent preparing this complex discharge summary. Pt was discharged on 12/21/2024 at 1:32 PM Patient was seen independently by Nurse Practitioner. This document was prepared using [employer] dictation software. Please allow for errors in robotics application engineer while rare they do occur. Ata Gil NP rendered care for this patient independently, reviewed the findings and plan as documented in the note above. I did not physically speak with or examine the patient on this date. Patient Condition at Discharge: Stable Plan - Discharge Summary Discharge Rx Participant: No New Discharge Prescriptions: Continue Multivit with Calcium,Iron,Min [Women's Multivitamin] 1 tab PO DAILY Iron 6mg 1 tab PO Q48H Mecobalamin [Methyl B-12] 1,000 mcg PO DAILY Naproxen [Naprosyn] 500 mg PO DAILY PRN PRN Reason: Pain valACYclovir HCL [Valtrex] 500 mg PO DAILY Propranolol [Inderal] 20 mg PO DAILY Biotin 2,500 mcg PO DAILY Ubidecarenone [Coenzyme Q10] 200 mg PO DAILY Magnesium Oxide [Mag-Ox] 400 mg PO DAILY Ascorbic Acid [Vitamin C] 1,000 mg PO DAILY SUMAtriptan succinate [Imitrex] 100 mg PO DAILY PRN PRN Reason: Migraine Headache Calcium Carbonate [Calcium] 600 mg PO BID Bonafide Womens Supplement 1 tab PO DAILY Discharge Medication List Multivit with Calcium,Iron,Min [Women's Multivitamin] 1 tab PO DAILY 01/25/22 [History] Propranolol [Inderal] 20 mg PO DAILY 01/25/22 [History] valACYclovir HCL [Valtrex] 500 mg PO DAILY 01/25/22 [History] Ascorbic Acid [Vitamin C] 1,000 mg PO DAILY 12/20/24 [History] Biotin 2,500 mcg PO DAILY 12/20/24 [History] Bonafide Womens Supplement 1 tab PO DAILY 12/20/24 [History] Calcium Carbonate [Calcium] 600 mg PO BID 12/20/24 [History] Iron 6mg 1 tab PO Q48H 12/20/24 [History] Magnesium Oxide [Mag-Ox] 400 mg PO DAILY 12/20/24 [History] Mecobalamin [Methyl B-12] 1,000 mcg PO DAILY 12/20/24 [History] Naproxen [Naprosyn] 500 mg PO DAILY PRN 12/20/24 [History] SUMAtriptan succinate [Imitrex] 100 mg PO DAILY PRN 12/20/24 [History] Ubidecarenone [Coenzyme Q10] 200 mg PO DAILY 12/20/24 [History] Follow up Appointment(s)/Referral(s): Jerrell Doty MD [STAFF PHYSICIAN] - 2 Weeks (office to call patient) Murtaza Alves MD [STAFF PHYSICIAN] - 1 Week Nonstaff,Physician [Primary Care Provider] - 1-2 days Patient Instructions/Handouts: Chest Pain (DC) Activity/Diet/Wound Care/Special Instructions: Activity: As tolerated. Take breaks as needed. Diet: Heart healthy and carb consistent diet. Special Instructions: Take all of your medications as directed and remember to keep all of your doctor's appointments and follow-up as needed. Wishing you the best of time on your vacation! Thank you for allowing us to participate in your care, it was truly a pleasure having you for our patient!!! Discharge Disposition: HOME SELF-CARE
== END 2024-12-21 14:37 | disposition home or self-care (01) ==
LOC: EC 14:38 → 6NMEDSUR 17:12
PROVIDERS: ADMIT Student in an Organized Health Care Education/Training Program; ATTEND Student in an Organized Health Care Education/Training Program
DX: R07.89 Other chest pain (principal); I10 Essential (primary) hypertension; I08.1 Rheumatic disorders of both mitral and tricuspid valves; G43.909 Migraine, unspecified, not intractable, without status migrainosus; M81.0 Age-related osteoporosis without current pathological fracture; R74.01 Elevation of levels of liver transaminase levels; Z79.899 Other long term (current) drug therapy; Z88.1 Allergy status to other antibiotic agents; Z88.5 Allergy status to narcotic agent; Z91.013 Allergy to seafood; Z86.79 Personal history of other diseases of the circulatory system
CPT/HCPCS: 96372; 99285; 36415; 94760; 93005; 93306; 93351; 82172; 85379; 80061; 80053; 80048; 84443; 83735; 84484; 85025 ×2; 85610; 85730; 83036; 71046; G0378 ×2; J1650